=== PATIENT | male | born 1955 | race Caucasian/White ===

== ENCOUNTER → 2019-07-15 09:06 | Outpatient (CLI) | payer BC, SELFPAY ==
--- NOTE | ~2019-07-15 | CT_ITS ---
EXAMINATION: CT abdomen wo con DATE: 07/15/2019 09:24 INDICATION: Right upper quadrant abdominal pain TECHNIQUE: Computed tomography (CT) of the abdomen was performed without intravenous contrast. The do se-length product (DLP) was 732.77 mGy-cm. Automated exposure control and iterative reconstruction te chnique were employed. COMPARISON: None FINDINGS: There is a 5 mm nodule of the left lower lobe. The heart size is normal. The liver is diffu sely low in attenuation when compared with the spleen, consistent with hepatic steatosis. Within the limitations of noncontrast examination, the spleen, pancreas, gallbladder, and adrenal glands are nor mal. The kidneys are unremarkable. There are no pathologically enlarged abdominal lymph nodes. There is no free intraperitoneal gas or evidence of bowel obstruction. There is moderate lumbar spondylosis . There is a small fat-containing umbilical hernia. IMPRESSION: 1. No CT correlate for the patient's symptoms. Reviewed, dictated and finalized at location A. SEA DIVER
== END ==
PROVIDERS: PCP Family Medicine Adolescent Medicine; Visit Provider Family Medicine Adolescent Medicine
DX: R10.11 Right upper quadrant pain (principal); K76.0 Fatty (change of) liver, not elsewhere classified
CPT/HCPCS: 74150

== ENCOUNTER 2019-12-19 09:37 | Outpatient (CLI) | payer BC, SELFPAY ==
--- NOTE | ~2019-12-19 | US_ITS ---
EXAMINATION: US right upper quadrant EXAM DATE: 12/19/2019 10:10 INDICATION: Elevated liver function tests. TECHNIQUE: Multiple grayscale and Doppler images of the abdomen right upper quadrant were obtained (b y a technologist who performed the scan) and subsequently reviewed. Comparison is made to prior exami nation from 08/02/2017. FINDINGS: The pancreatic head and body are normal in appearance. The pancreatic tail is not visualized. There is echogenic liver parenchyma, hepatic steatosis. There are no focal liver lesions identified. Th ere is no evidence of intrahepatic biliary duct dilation. Portal venous flow was seen in the hepatop edal, normal direction and has normal Doppler waveform. No right-sided hydronephrosis. Common bile duct measures 3 mm, which is normal. The gallbladder wall is normal in thickness, with ex pected amount of distention. No sonographic evidence of pericholecystic fluid. There is no cholelit hiases. Technologist performing exam reports patient did not demonstrate sonographic Wasserman's sign. Please note that this sign is less reliable in patients who have received pain medication. IMPRESSION: 1. Hepatic steatosis. Reviewed, dictated and finalized at location A. IMPRESSION: 1. Hepatic steatosis.
== END 2019-12-19 09:38 | disposition home or self-care (01) ==
LOC: ANHIMG 09:43
PROVIDERS: PCP Family Medicine Adolescent Medicine; Visit Provider Internal Medicine Endocrinology, Diabetes & Metabolism
DX: R74.8 Abnormal levels of other serum enzymes (principal); K76.0 Fatty (change of) liver, not elsewhere classified
CPT/HCPCS: 76705

== ENCOUNTER 2020-03-23 14:30 | Outpatient (RCR) | payer BC, SELFPAY ==
[2020-03-01 13:06] VITALS: BMI 37.5
== END 2020-03-23 18:00 | disposition home or self-care (01) ==
LOC: ANHDMC 14:30
PROVIDERS: PCP Family Medicine Adolescent Medicine; Visit Provider Family Medicine Adolescent Medicine
DX: E11.65 Type 2 diabetes mellitus with hyperglycemia (principal); Z71.3 Dietary counseling and surveillance; Z71.89 Other specified counseling
CPT/HCPCS: 97802; G0108; G0109

== ENCOUNTER 2020-09-27 14:07 | Outpatient (RCR) | payer BC, SELFPAY | END 2020-09-27 16:04 | disposition home or self-care (01) | LOC: ANHDMC 14:07 | PROVIDERS: PCP Family Medicine Adolescent Medicine; Visit Provider Family Medicine Adolescent Medicine | DX: E11.65 Type 2 diabetes mellitus with hyperglycemia (principal); Z71.89 Other specified counseling | CPT/HCPCS: G0108 ==

== ENCOUNTER → 2021-02-27 12:12 | Outpatient (CLI) | payer BC, SELFPAY ==
--- NOTE | ~2021-02-27 | MR_ITS ---
EXAMINATION: MR lumbar spine wo con DATE: 02/27/2021 13:02 INDICATION: Low back pain. TECHNIQUE: Magnetic resonance imaging (MRI) of the lumbar spine was performed without intravenous con trast. Sequences included sagittal T2-weighted FSE, sagittal T2-weighted FS FSE, sagittal T1-weighted FSE, and axial T2-weighted FSE. COMPARISON: Lumbar spine MRI 11/21/2017 FINDINGS: There is 6 degrees dextrocurvature of thoracolumbar spine. There is mild chronic anterior w edging of T11 and T12 vertebral bodies. There are Schmorl's nodes at multiple levels. There is mildly decreased disc height at L3-L4 and moderately decreased disc height at L4-L5 with endplate remodelin g. The distal spinal cord signal intensity is normal. The conus medullaris is at T12. The following d isc levels are specifically discussed: L1-L2: The disc does not extend beyond the endplate margin. There is moderate bilateral facet joint o steoarthritis. There is no neural foraminal stenosis. There is no central canal stenosis. L2-L3: The disc does not extend beyond the endplate margin. There is mild bilateral facet joint osteo arthritis. There is no neural foraminal stenosis. There is no central canal stenosis. L3-L4: The disc is bulging. There is mild bilateral facet joint osteoarthritis. There is moderate rig ht and mild left neural foraminal stenosis. There is mild central canal stenosis. L4-L5: The disc is bulging and has an annular fissure. There is moderate right and mild left facet delano int osteoarthritis. There is moderate right and mild left neural foraminal stenosis. There is mild ce ntral canal stenosis with posterior decompression. L5-S1: The disc does not extend beyond the endplate margin. There is severe right and moderate left f acet joint osteoarthritis. There is mild right neural foraminal stenosis. There is no central canal s tenosis. IMPRESSION: 1. Moderate lumbar spondylosis, stable from 11/21/2017. Reviewed, dictated and finalized at location A.
== END ==
PROVIDERS: PCP Family Medicine Adolescent Medicine; Visit Provider Nurse Practitioner Family
DX: M47.816 Spondylosis without myelopathy or radiculopathy, lumbar region (principal); M54.50 Low back pain, unspecified
CPT/HCPCS: 72148

== ENCOUNTER 2023-01-10 09:45 | Outpatient (RCR) | payer MEDICARE, OTHER, SELFPAY ==
[2022-10-19 08:06] VITALS: PULSE 74
== END 2023-01-30 09:32 | disposition home or self-care (01) ==
LOC: ANHCPREHAB 09:45
PROVIDERS: PCP Family Medicine Adolescent Medicine; Visit Provider Internal Medicine Cardiovascular Disease
DX: Z95.1 Presence of aortocoronary bypass graft (principal)
CPT/HCPCS: 93798